=== PATIENT | female | born 1960 | race Caucasian/White ===

== ENCOUNTER → 2018-12-13 | Outpatient (CLI) | payer OTHER ==
[~2018-12-13] MED LIST: CEPH500 PO; PHENA200 PO
[2018-12-16 10:06] LABS: CHLAMYDIA BY NAA Negative (Negative); GONOCOCCUS BY NAA Negative (Negative); TRICH VAG BY NAA Negative (Negative)
== END | disposition home or self-care (01) ==
LOC: LAB SHORT 09:27 → LAB EV 09:27
PROVIDERS: General Practice
DX: N76.0 Acute vaginitis (principal)
CPT/HCPCS: 87070; 87147; 87205; 87491; 87591; 87661

== ENCOUNTER 2019-03-17 06:46 | Day surgery (SDC) | payer OTHER ==
[~2019-03-17] VITALS: Ht 165.1 cm; Wt 73.9 kg
[~2019-03-17 06:46] MED LIST changes: +ALEN70 PO; +CALCIUM PO; +Coq-10100 MG PO; +Estrace Vagin42.5 GM VAG; +LO-DOSE ASPIRIN81 MG PO; +PRAV20 PO; +STRONIUM PO; +TRAZ50 PO
[2019-03-17] MEDS ORDERED: IMPOYZ60 GM (07:29)
[2019-03-17] MEDS ORDERED: Triamcinolone A15 G2 (07:30)
== END 2019-03-17 09:10 | disposition home or self-care (01) ==
LOC: ORSCSDS 06:46
PROVIDERS: Student in an Organized Health Care Education/Training Program
PROC: 0DBE8ZX Excision of Large Intestine, Via Natural or Artificial Opening Endoscopic, Diagnostic (ICD-10-PCS; principal; 2019-03-17 08:00)
DX: K62.89 Other specified diseases of anus and rectum (principal); R19.7 Diarrhea, unspecified; K63.89 Other specified diseases of intestine; B19.20 Unspecified viral hepatitis C without hepatic coma; E78.5 Hyperlipidemia, unspecified; Z79.899 Other long term (current) drug therapy
CPT/HCPCS: 88305; J0330; J2405; J2704; J7120

== ENCOUNTER → 2019-10-21 | Outpatient (CLI) | payer OTHER ==
[~2019-10-21] MED LIST changes: +IMPOYZ60 GM; +Triamcinolone A15 G2
== END | disposition home or self-care (01) ==
LOC: LAB SHORT 11:04 → LAB 11:04
DX: R30.0 Dysuria (principal)
CPT/HCPCS: 87086; 87147

== ENCOUNTER → 2020-07-09 | Outpatient (CLI) | payer OTHER | LOC: LAB SHORT 09:22 → LAB EV 09:22 | DX: N39.0 Urinary tract infection, site not specified (principal) | CPT/HCPCS: 87077; 87086; 87186 ==

== ENCOUNTER → 2020-08-02 | Outpatient (CLI) | payer OTHER | END | disposition home or self-care (01) | LOC: LAB SHORT 18:29 | DX: N90.89 Other specified noninflammatory disorders of vulva and perineum (principal) | CPT/HCPCS: 87070; 87147; 87205 ==

== ENCOUNTER → 2021-05-16 | Outpatient (CLI) | payer OTHER ==
[2021-05-17 15:09] LABS: HPV 16 Negative (Negative); HPV 18 Negative (Negative); HPV OTHER HR TYPES Negative (Negative)
== END | disposition home or self-care (01) ==
LOC: LAB SHORT 13:08
PROVIDERS: Obstetrics & Gynecology
DX: Z12.4 Encounter for screening for malignant neoplasm of cervix (principal)
CPT/HCPCS: 87624; G0123

== ENCOUNTER → 2022-12-30 | Outpatient (CLI) | payer OTHER | END | disposition home or self-care (01) | LOC: LAB 15:56 → LAB SHORT 15:56 | DX: N39.0 Urinary tract infection, site not specified (principal) | CPT/HCPCS: 87086 ==

== ENCOUNTER → 2023-08-03 | Outpatient (CLI) | payer OTHER ==
[~2023-08-03] MED LIST changes: +NITR100CA PO; +Pyridium200 MG PO
== END ==
LOC: LAB 08:11 → LAB SHORT 08:11
DX: R30.0 Dysuria (principal)
CPT/HCPCS: 87086